=== PATIENT | female | born 1975 | race Caucasian/White ===

== ENCOUNTER 2016-12-06 19:57 | Emergency (ER) | payer SELFPAY ==
--- NOTE | 2016-12-06 21:55 | DIAGNOSTIC IMAGING REPORT ---
PROCEDURE: XR WRIST MIN 3 VIEWS - LEFT INDICATION: TRAUMA/INJURY TECHNIQUE: Four views. COMPARISON: Compare radiographs of the left wrist on 09/13/2010. FINDINGS: Osseous structures and joint spaces are normal. If an occult scaphoid fracture is suspected clinically, follow-up examination in 10-14 days may be of assistance. IMPRESSION: 1. Normal left wrist.
--- NOTE | 2016-12-06 22:03 | ED ORDER SUMMARY ---
..... Patient: AMINATA KEEN OrderSheet [facility] VisitID: [id number] [address] [place] [address] 41y, F Registration Date/Time: 12/06/2016 ORDER SHEET Weight: 101.6 kg (stated) Allergies: None GENERAL ORDERS: Wrist 3 or 4V Left Urgent (21:23 12/06/2016 HBivens A.R.N.P.) (Ack 21:25 RKaruga) (21:45 AMcQuoid ER Tech1) Lowell Wrap (22:03 12/06/2016 HBivens A.R.N.P.) (22:12 RMarsden R.N.) MEDICATION ORDERS: Hydrocodone-APAP PO 5/325 mg (NOW, HIGH ALERT MEDICATION) (21:23 12/06/2016 HBivens A.R.N.P.) (Ack 21:23 RMarsden R.N.) (21:25 RMarsden R.N.) IV FLUIDS: ORDER SHEET NOTES: [Electronically signed by Urszula LópezR.N.P. (22:31 12/06/2016)] [Electronically signed by Kimmie Arredondo R.N. (04:49 12/07/2016)] [Electronically locked/signed by Kimmie Arredondo R.N. (04:49 12/07/2016)]
--- NOTE | 2016-12-06 22:03 | ED NURSING NOTES ---
Clinical Report - Nurses [facility] [place] [address] 12/06/2016 19:57 [id number] Triage time 20:18. Acuity: LEVEL 4. Chief Complaint: INJURY TO LEFT HAND and INJURY TO LEFT WRIST. 20:32 12/06/16. Alert. SEPSIS SCREEN: Sepsis Screen. Negative (no infection suspected/documented). BELINDA COMA SCORE: [place] Coma Scale: 15- eyes open spontaneously (4); best verbal response- oriented x 4 (5); best motor response- obeys commands (6). --20:32 Kimmie Arredondo R.N. 20:18 12/06/16. BP: 101/61 taken on the right arm, while lying. HR: 69. RR: 15. O2 saturation: 96% on room air. Temp: 97.9 F. Pain level now: 03/02. --20:32 Kimmie Arredondo R.N. 20:36 12/06/16. --20:36 Kimmie Arredondo R.N. Weight: 101.6 kg stated. Height/Length: 63 inches Per Patient. BMI: 39.7. --20:24 Kimmie Arredondo R.N. Medications NexIUM Oral. --20:22 Kimmie Arredondo R.N. Allergies None. --20:22 Kimmie Arredondo R.N. History Arrived by private vehicle. Historian: patient. Accompanied by family. Primary physician (josé (seamar). Clinic sent patient). This occurred (two days ago). Mechanism of injury: fell. ( Patient states the outer part of her hand and wrist are tingling.). 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 PAST MEDICAL HX: Tetanus status: up-to-date. Immunizations: up-to-date. Denies current . SOCIAL HX: Light tobacco smoker (cigarette)- less than 1/2 a pack per day. Occasional alcohol use. No drug use. FALL RISK ASSESSMENT: Fall risk assessment completed. No fall risk identified. NUTRITIONAL RISK ASSESSMENT: The nutritional risk assessment revealed no deficiencies. FUNCTIONAL ASSESSMENT: Functional assessment: no impairments noted. LEARNING NEEDS ASSESSMENT: The learning needs assessment revealed no barriers. SKIN INTEGRITY ASSESSMENT: Skin integrity risk assessment completed. No skin integrity risk identified. --20:32 Kimmie Arredondo R.N. ( Patient states she tripped down the stairs and landed on her arm.). --20:36 Kimmie Arredondo R.N. PROBLEMS: Ovarian Cyst. Dehydration. Dizziness. Cystitis. Cervical Radiculopathy. Hemorrhoids. Constipation. Immunizations. Vomiting. Peptic Ulcer Disease. Abdominal Pain. Gastroesophageal Reflux Disease. Gastritis. Depression. LNMP - Last Normal Menstrual Period. --20:23 Kimmie Arredondo R.N. ADDITIONAL SURGERIES: Appendectomy. Cholecystectomy. . Hysterectomy. Oophorectomy. Previous Abdominal Surgery. --20:23 Kimmie Arredondo R.N. Interventions ID band on patient. To treatment room. --20:32 Kimmie Arredondo R.N. PHYSICAL ASSESSMENT 20:35 12/06/16. GENERAL / NEURO / PSYCH: Disoriented. Alert. Appears in no acute distress. EXTREMITIES: Capillary refill is less than 2 seconds in the extremities. Extremity pulses are within normal limits. Extremities exhibit normal ROM. Left forearm: tenderness, swelling and deformity. Left wrist: tenderness and swelling. Limited ROM secondary to pain (diminished flexion and extension). Thenar eminence, left hand: tenderness and swelling. Limited movement of the thumb secondary to pain (diminished flexion and extension). Left thumb: tenderness and swelling. Limited movement secondary to pain (diminished flexion and extension). Left index finger: tenderness and swelling. Limited movement secondary to pain (diminished flexion and extension). Left middle finger: tenderness and swelling. Limited movement secondary to pain (diminished flexion and extension). SKIN: Skin intact. Skin is warm and dry. --20:35 Kimmie Arredondo R.N. NURSING PROGRESS NOTES 21:21 12/06/16. Two patient identifiers checked. Call light placed in reach. Bed placed in lowest position. Brakes of bed on. ( Patient given blankets for comfort. Notified patient and family about reason for wait and plan of care.). --21:21 Kimmie Arredondo R.N. 21:25 12/06/2016 Hydrocodone-APAP (Hydrocodone-Acetaminophen) PO 5/325 mg Tablets 1 tab given. Allergies verified, confirmed 5 rights and sedative warning given to the patient and patient's family. --21:25 Kimmie Arredondo R.N. 21:37 Portable Xray in progress. --21:37 McQuoid, Ida, ER Tech1 ( xray in room.). --21:39 Kimmie Arredondo R.N. 21:52 12/06/16. BP: 101/50. HR: 60. RR: 16. O2 saturation: 97% on room air. Pain level now: 01/30. Additional comments: Patient declined ice bag. Ring removed from left hand by female family member. . --21:57 McQuoid, Ida, ER Tech1 22:01 12/06/16. BP: 101/50 taken on the right arm, while sitting. HR: 66. RR: 15. O2 saturation: 100%. Pain level now: 01/30. --22:02 Kimmie Arredondo R.N. 22:02 12/06/2016 Hydrocodone-APAP PO Response: no adverse reaction pain is improving. The patient feels better. 12/06/2016 22:01 BP: 101/50. HR: 66. RR: 15. O2 saturation: 100%. Pain level now: 01/30. --22:02 Kimmie Arredondo R.N. 22:02 12/06/16. Patient and family informed about reason for wait and about plan of care. --22:02 Kimmie Arredondo R.N. DISPOSITION / DISCHARGE 22:12/06/16. BP: 101/50 taken on the right arm, while sitting. HR: 66. RR: 15. O2 saturation: 100%. Pain level now: 01/30. --22:05 Kimmie Arredondo R.N. 22:13 12/06/16. No learning barriers present. Discharge instructions provided and reviewed with the patient and family. Reviewed warnings. Reviewed medication(s). Treatments reviewed. Activity restrictions reviewed. Patient and family verbalized understanding. Written instructions provided in Northern Irish. The patient was discharged home and accompanied by family. She left the Emergency Department ambulatory and via private vehicle. Family member driving. --22:13 Kimmie Arredondo R.N. <<STRICKEN ENTRY-- 04:47 12/06/16. Temp: deferred. --04:48 Kimmie Arredondo R.N. --END STRIKE>> Correction. --04:48 Kimmie Arredondo R.N. 22:01 12/06/16. Temp: deferred. --04:49 Kimmie Arredondo R.N. Locked/Released at 12/07/2016 4:49 by Kimmie Arredondo R.N.
--- NOTE | 2016-12-06 22:03 | ED ORDER SUMMARY ---
..... Patient: AMINATA KEEN OrderSheet [facility] VisitID: [id number] [address] [place] [address] 41y, F Registration Date/Time: 12/06/2016 ORDER SHEET Weight: 101.6 kg (stated) Allergies: None GENERAL ORDERS: Wrist 3 or 4V Left Urgent (21:23 12/06/2016 HBivens A.R.N.P.) (Ack 21:25 RKaruga) (21:45 AMcQuoid ER Tech1) Lowell Wrap (22:03 12/06/2016 HBivens A.R.N.P.) (22:12 RMarsden R.N.) MEDICATION ORDERS: Hydrocodone-APAP PO 5/325 mg (NOW, HIGH ALERT MEDICATION) (21:23 12/06/2016 HBivens A.R.N.P.) (Ack 21:23 RMarsden R.N.) (21:25 RMarsden R.N.) IV FLUIDS: ORDER SHEET NOTES: [Electronically signed by Urszula LópezR.N.P. (22:31 12/06/2016)] [Electronically signed by Kimmie Arredondo R.N. (04:49 12/07/2016)] [Electronically locked/signed by Kimmie Arredondo R.N. (04:49 12/07/2016)]
--- NOTE | 2016-12-06 22:03 | ED NURSING NOTES ---
Clinical Report - Nurses [facility] [place] [address] 12/06/2016 19:57 [id number] TRI[facility] Triage time 20:18. Acuity: LEVEL 4. Chief Complaint: INJURY TO LEFT HAND and INJURY TO LEFT WRIST. 20:32 12/06/16. Alert. SEPSIS SCREEN: Sepsis Screen. Negative (no infection suspected/documented). BELINDA COMA SCORE: [place] Coma Scale: 15- eyes open spontaneously (4); best verbal response- oriented x 4 (5); best motor response- obeys commands (6). --20:32 Kimmie Arredondo R.N. 20:18 12/06/16. BP: 101/61 taken on the right arm, while lying. HR: 69. RR: 15. O2 saturation: 96% on room air. Temp: 97.9 F. Pain level now: 03/02. --20:32 Kimmie Arredondo R.N. 20:36 12/06/16. --20:36 Kimmie Arredondo R.N. Weight: 101.6 kg stated. Height/Length: 63 inches Per Patient. BMI: 39.7. --20:24 Kimmie Arredondo R.N. Medications NexIUM Oral. --20:22 Kimmie Arredondo R.N. Allergies None. --20:22 Kimmie Arredondo R.N. History Arrived by private vehicle. Historian: patient. Accompanied by family. Primary physician (josé (seamar). Clinic sent patient). This occurred (two days ago). Mechanism of injury: fell. ( Patient states the outer part of her hand and wrist are tingling.). 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 PAST MEDICAL HX: Tetanus status: up-to-date. Immunizations: up-to-date. Denies current . SOCIAL HX: Light tobacco smoker (cigarette)- less than 1/2 a pack per day. Occasional alcohol use. No drug use. FALL RISK ASSESSMENT: Fall risk assessment completed. No fall risk identified. NUTRITIONAL RISK ASSESSMENT: The nutritional risk assessment revealed no deficiencies. FUNCTIONAL ASSESSMENT: Functional assessment: no impairments noted. LEARNING NEEDS ASSESSMENT: The learning needs assessment revealed no barriers. SKIN INTEGRITY ASSESSMENT: Skin integrity risk assessment completed. No skin integrity risk identified. --20:32 Kimmie Arredondo R.N. ( Patient states she tripped down the stairs and landed on her arm.). --20:36 Kimmie Arredondo R.N. PROBLEMS: Ovarian Cyst. Dehydration. Dizziness. Cystitis. Cervical Radiculopathy. Hemorrhoids. Constipation. Immunizations. Vomiting. Peptic Ulcer Disease. Abdominal Pain. Gastroesophageal Reflux Disease. Gastritis. Depression. LNMP - Last Normal Menstrual Period. --20:23 Kimmie Arredondo R.N. ADDITIONAL SURGERIES: Appendectomy. Cholecystectomy. . Hysterectomy. Oophorectomy. Previous Abdominal Surgery. --20:23 Kimmie Arredondo R.N. Interventions ID band on patient. To treatment room. --20:32 Kimmie Arredondo R.N. PHYSICAL ASSESSMENT 20:35 12/06/16. GENERAL / NEURO / PSYCH: Disoriented. Alert. Appears in no acute distress. EXTREMITIES: Capillary refill is less than 2 seconds in the extremities. Extremity pulses are within normal limits. Extremities exhibit normal ROM. Left forearm: tenderness, swelling and deformity. Left wrist: tenderness and swelling. Limited ROM secondary to pain (diminished flexion and extension). Thenar eminence, left hand: tenderness and swelling. Limited movement of the thumb secondary to pain (diminished flexion and extension). Left thumb: tenderness and swelling. Limited movement secondary to pain (diminished flexion and extension). Left index finger: tenderness and swelling. Limited movement secondary to pain (diminished flexion and extension). Left middle finger: tenderness and swelling. Limited movement secondary to pain (diminished flexion and extension). SKIN: Skin intact. Skin is warm and dry. --20:35 Kimmie Arredondo R.N. NURSING PROGRESS NOTES 21:21 12/06/16. Two patient identifiers checked. Call light placed in reach. Bed placed in lowest position. Brakes of bed on. ( Patient given blankets for comfort. Notified patient and family about reason for wait and plan of care.). --21:21 Kimmie Arredondo R.N. 21:25 12/06/2016 Hydrocodone-APAP (Hydrocodone-Acetaminophen) PO 5/325 mg Tablets 1 tab given. Allergies verified, confirmed 5 rights and sedative warning given to the patient and patient's family. --21:25 Kimmie Arredondo R.N. 21:37 Portable Xray in progress. --21:37 McQuoid, Ida, ER Tech1 ( xray in room.). --21:39 Kimmie Arredondo R.N. 21:52 12/06/16. BP: 101/50. HR: 60. RR: 16. O2 saturation: 97% on room air. Pain level now: 01/30. Additional comments: Patient declined ice bag. Ring removed from left hand by female family member. . --21:57 McQuoid, Ida, ER Tech1 22:01 12/06/16. BP: 101/50 taken on the right arm, while sitting. HR: 66. RR: 15. O2 saturation: 100%. Pain level now: 01/30. --22:02 Kimmie Arredondo R.N. 22:02 12/06/2016 Hydrocodone-APAP PO Response: no adverse reaction pain is improving. The patient feels better. 12/06/2016 22:01 BP: 101/50. HR: 66. RR: 15. O2 saturation: 100%. Pain level now: 01/30. --22:02 Kimmie Arredondo R.N. 22:02 12/06/16. Patient and family informed about reason for wait and about plan of care. --22:02 Kimmie Arredondo R.N. DISPOSITION / DISCHARGE 22:12/06/16. BP: 101/50 taken on the right arm, while sitting. HR: 66. RR: 15. O2 saturation: 100%. Pain level now: 01/30. --22:05 Kimmie Arredondo R.N. 22:13 12/06/16. No learning barriers present. Discharge instructions provided and reviewed with the patient and family. Reviewed warnings. Reviewed medication(s). Treatments reviewed. Activity restrictions reviewed. Patient and family verbalized understanding. Written instructions provided in Salvadorean. The patient was discharged home and accompanied by family. She left the Emergency Department ambulatory and via private vehicle. Family member driving. --22:13 Kimmie Arredondo R.N. <<STRICKEN ENTRY-- 04:47 12/06/16. Temp: deferred. --04:48 Kimmie Arredondo R.N. --END STRIKE>> Correction. --04:48 Kimmie Arredondo R.N. 22:01 12/06/16. Temp: deferred. --04:49 Kimmie Arredondo R.N. Locked/Released at 12/07/2016 4:49 by Kimmie Arredondo R.N.
--- NOTE | 2016-12-06 22:03 | ED CLINICAL REPORT ---
Clinical Report - Physicians/Mid Levels [facility] [address] [place] [address] 12/06/2016 19:57 Patient: AMINATA KEEN Time Seen: 20:27; initial patient contact, initial documentation, patient care assumed. Arrived- By private vehicle. Historian- patient and daughter. HISTORY OF PRESENT ILLNESS Chief Complaint: Injury to the left wrist. The injury happened about 2 days ago. Fell while walking and landed on a hard surface; tripped (tripped on stairs). Occurred at home. Patient is experiencing moderate pain. Patient denies injury to the head or neck. No other injury. ( sent from clinic for xray). REVIEW OF SYSTEMS The patient has had swelling. No tingling, numbness, weakness, foreign body or skin laceration. All systems otherwise negative, except as recorded above. PAST HISTORY See nurses notes. PROBLEMS: Ovarian Cyst. Dehydration. Dizziness. Cystitis. Cervical Radiculopathy. Hemorrhoids. Constipation. Immunizations. Vomiting. Peptic Ulcer Disease. Abdominal Pain. Gastroesophageal Reflux Disease. Gastritis. Depression. LNMP - Last Normal Menstrual Period. --20:23 Kimmie Arredondo, RDuN. ADDITIONAL SURGERIES: Appendectomy. Cholecystectomy. . Hysterectomy. Oophorectomy. Previous Abdominal Surgery. --20:23 Kimmie Arredondo RDuN. SOCIAL HISTORY Light tobacco smoker. Occasional alcohol use. No drug use. No recent travel. Is a local resident. FAMILY HISTORY No significant family medical history. ADDITIONAL NOTES The nursing notes have been reviewed with agreement regarding the chief complaint, HPI, ROS, PMH and patient medications and allergies. PHYSICAL EXAM Vital Signs: 12/06/2016 20:18 BP: 101/61. HR: 69. RR: 15. O2 saturation: 96%. Temp: 97.9 F. Pain level now: 9/10. Have been reviewed as normal and appear to be correct. Appearance: Alert. Oriented X3. No acute distress. Head: Head atraumatic. Eyes: Pupils equal, round and reactive to light. Eyes normal inspection. Respiratory: No respiratory distress. Skin: Skin warm and dry. Skin intact. Extremities: Wrist injury present. Left wrist: moderate tenderness and mild swelling. Limited ROM secondary to pain (diminished flexion and extension, ulnar deviation and radial deviation). Neurovascular intact distally. No erythema, laceration, abrasion, ecchymosis or puncture wound. No foreign body or deformity. No localization or joint effusion. No hand injury. Hand and wrist exam otherwise negative. Extremities otherwise negative. Neuro, Vascular and Tendons: Vascular status intact. Sensation intact. Motor intact. Tendon function intact. Neuro: Oriented X 3. No motor deficit. No sensory deficit. Note: isolated injury to wrist. LABS, X-RAYS, AND EKG X-Rays: Left wrist negative. Lt Wrist X-ray: (IMPRESSION: 1. Normal left wrist. Electronically Final signed by:Chapo Upton MD 12/06/2016 9:50:20 PM). The X-rays were interpreted by the radiologist and contemporaneously by me. PROGRESS AND PROCEDURES Patient and family counseled in person regarding the patient's stable condition, test results and diagnosis. 22:02. Differential Diagnosis: Other possible considerations: fall, wrist fx, sprain. Above considerations are based on history, physical exam, reassessment and X-Ray data. Differential diagnosis was discussed with patient. Disposition: Discharged home in good and improved condition (22:03). Condition: good and stable. CLINICAL IMPRESSION Sprain of the left radiocarpal joint. Fall on same level by tripping. INSTRUCTIONS Wear elastic wrap (Lowell wrap) as directed for one weeks until better. Warnings: GENERAL WARNINGS: Return or contact your physician immediately if your condition worsens or changes unexpectedly, if not improving as expected, or if other problems arise. Specifically return if problem worsens. Prescription Medications: Ultram 50 mg tablets: take 1-2 orally every 6 hours as needed for pain. Dispense twenty (20). No refills. Substitution is permissible. Follow-up: Follow up with your doctor in about one week as needed. Call for an appointment. Summary of care provided to patient. Understanding of the discharge instructions verbalized by patient. (Electronically signed by Urszula López A.R.NJhoana 12/06/2016 22:31)
--- NOTE | 2016-12-07 04:49 | ED MED RECONCILIATION SUMMARY ---
Patient: AMINATA KEEN Medication Reconciliation Report [facility] VisitID: [id number] [address] [place] [address] 41y, F Registration Date/Time: 12/06/2016 Weight: 101.6 kg Height/Length: 63 in. BMI: 39.7 ALLERGIES: None The patient's Home Medications are listed below: THE FOLLOWING MEDICATIONS NEED TO BE RECONCILED: NexIUM Oral The source(s) of the original Home Medication information: Not obtained. The following Medications were given to the patient in the Emergency Department: Hydrocodone-APAP [PO] PO 1 tab, administered: 12/06/2016 9:25:00 PM The following Medications were prescribed to the patient: Ultram 50 mg tablets: take 1-2 orally every 6 hours as needed for pain. Dispense twenty (20). No refills. Substitution is permissible. -- Urszula López A.R.N.P.
--- NOTE | 2016-12-07 04:49 | ED MAR SUMMARY ---
..... Medication Administration Record [facility] [address] [place] [address] Patient: AMINATA KEEN Visit ID: [id number] 41y, F Weight: 101.6 kg Height/Length: 63 in BMI: 39.7 ALLERGIES: None Given 21:25 12/06/2016 Kimmie Arredondo R.N. Medication Administered: HYDROCODONE-APAP [PO] (HYDROCODONE-ACETAMINOPHEN), Dose: 1 tab 5/325 mg Tablets PO. Medication Ordered: Hydrocodone-APAP PO 5/325 mg (NOW, HIGH ALERT MEDICATION).
--- NOTE | 2016-12-07 04:49 | ED DISCHARGE INSTRUCTIONS ---
Patient: AMINATA KEEN General Instructions [facility] VisitID: [id number] [place] [address] 41y, F Registration Date/Time: 12/06/2016 Sprain of the left radiocarpal joint. Fall on same level by tripping. INSTRUCTIONS Wear elastic wrap (Lowell wrap) as directed for one weeks until better. Warnings: GENERAL WARNINGS: Return or contact your physician immediately if your condition worsens or changes unexpectedly, if not improving as expected, or if other problems arise. Specifically return if problem worsens. Prescription Medications: Ultram 50 mg tablets: take 1-2 orally every 6 hours as needed for pain. Dispense twenty (20). No refills. Substitution is permissible. Follow-up: Follow up with your doctor in about one week as needed. Call for an appointment. Summary of care provided to patient. Understanding of the discharge instructions verbalized by patient. ADDITIONAL INFORMATION Mechanical Fall You have had a fall today. It appears that the cause is mechanical. That means that you slipped, tripped or lost your balance. If your fall had been due to fainting or a seizure, further tests would be required. Home Care: Rest today and resume your normal activities when you are feeling back to normal. If you were injured during the fall, follow the advice from your doctor regarding care of your injury. You may use acetaminophen (Tylenol) or ibuprofen (Motrin, Advil) to control pain, unless another pain medicine was prescribed. [NOTE: If you have chronic liver or kidney disease or ever had a stomach ulcer or GI bleeding, talk with your doctor before using these medicines.] Fall Prevention: Was there anything that caused your fall that can be fixed, removed, or replaced? Make your home safe by keeping walkways clear of objects you may trip over. Use non-slip pads under rugs. Do not walk in poorly lit areas. Do not stand on chairs or wobbly ladders. Use caution when reaching overhead or looking upward. This position can cause a loss of balance. Be sure your shoes fit properly, have non-slip bottoms and are in good condition. Be cautious when going up and down curbs, and walking on uneven sidewalks. If your balance is poor, consider using a cane or walker. Stay as active as you can. Balance, flexibility, strength, and endurance all come from exercise. They all play a role in preventing falls. Follow Up with your doctor or as advised by our staff. Get Prompt Medical Attention if any of the following occur: Repeated mechanical falls, or unexplained falls Dizziness, fainting or seizure Severe headache Chest pain or shortness of breath Palpitations (very rapid or very slow or irregular heartbeat) Blood in vomit, stools (black or red color) Weakness of an arm or leg or one side of the face Difficulty with speech or vision Sprain, Wrist A sprain is an injury to the ligaments or capsule that holds a joint together. There are no broken bones. Most sprains take about three to six weeks to heal. If the ligament is completely torn (severe sprain), it can take months to recover. Most wrist sprains are treated with a splint, wrist brace or elastic wrap for support. Severe sprains may require surgery. Home care The following guidelines will help you care for your injury at home: 1) Keep your arm elevated to reduce pain and swelling. This is very important during the first 48 hours. 2) Apply an ice pack (ice cubes in a plastic bag, wrapped in a towel) over the injured area for 20 minutes every 12 hours the first day. Continue with ice packs 34 times a day for the next two days, then as needed for the relief of pain and swelling. 3) You may use acetaminophen or ibuprofen to control pain, unless another pain medicine was prescribed.If you have chronic liver or kidney disease or ever had a stomach ulcer or GI bleeding, talk with your doctor before using these medicines. 4) If you were given a splint or brace, wear it for the time advised by your doctor. Follow-up care Follow up with your doctor as advised. Any X-rays you had today dont show any broken bones, breaks, or fractures. Sometimes fractures dont show up on the first X-ray. Bruises and sprains can sometimes hurt as much as a fracture. These injuries can take time to heal completely. If your symptoms dont improve or they get worse, talk with your doctor. You may need a repeat X-ray. When to seek medical care Get prompt medical attention if any of the following occur: Pain or swelling increases Fingers or hand becomes cold, blue, numb, or tingly Lowell Wrap An "Lowell Bandage" refers to any elastic bandage wrap (2-6" wide). This is used to apply support and compression to an arm or leg. It will help prevent or reduce swelling also. When applying the bandage, it should not be stretched too tightly. A tight Lowell Wrap will reduce circulation and cause tingling or numbness in the hand or foot. It may increase the pain under the bandage. If you get these symptoms, remove the wrap and rest the limb. Symptoms should go away within 1-2 hours. Once symptoms go away, reapply the bandage with less stretch. If symptoms do not go away after 1-2 hours with the bandage off, call your doctor or return to this facility promptly. Tramadol Hydrochloride Oral tablet What is this medicine? TRAMADOL (TRA ma dole) is a pain reliever. It is used to treat moderate to severe pain in adults. How should I use this medicine? Take this medicine by mouth with a full glass of water. Follow the directions on the prescription label. If the medicine upsets your stomach, take it with food or milk. Do not take more medicine than you are told to take. Talk to your production utility worker regarding the use of this medicine in children. Special care may be needed. What side effects may I notice from receiving this medicine? Side effects that you should report to your doctor or health long term care social worker as soon as possible: allergic reactions like skin rash, itching or hives, swelling of the face, lips, or tongue breathing difficulties, wheezing confusion itching light headedness or fainting spells redness, blistering, peeling or loosening of the skin, including inside the mouth seizures Side effects that usually do not require medical attention (report to your doctor or health long term care social worker if they continue or are bothersome): constipation dizziness drowsiness headache nausea, vomiting What may interact with this medicine? Do not take this medicine with any of the following medications: MAOIs like Carbex, Eldepryl, Marplan, Nardil, and Parnate This medicine may also interact with the following medications: alcohol or medicines that contain alcohol antihistamines benzodiazepines bupropion carbamazepine or oxcarbazepine clozapine cyclobenzaprine digoxin furazolidone linezolid medicines for depression, anxiety, or psychotic disturbances medicines for migraine headache like almotriptan, eletriptan, frovatriptan, naratriptan, rizatriptan, sumatriptan, zolmitriptan medicines for pain like pentazocine, buprenorphine, butorphanol, meperidine, nalbuphine, and propoxyphene medicines for sleep muscle relaxants naltrexone phenobarbital phenothiazines like perphenazine, thioridazine, chlorpromazine, mesoridazine, fluphenazine, prochlorperazine, promazine, and trifluoperazine procarbazine warfarin What if I miss a dose? If you miss a dose, take it as soon as you can. If it is almost time for your next dose, take only that dose. Do not take double or extra doses. Where should I keep my medicine? Keep out of the reach of children. Store at room temperature between 15 and 30 degrees C (59 and 86 degrees F). Keep container tightly closed. Throw away any unused medicine after the expiration date. What should I tell my health care provider before I take this medicine? They need to know if you have any of these conditions: brain tumor depression drug abuse or addiction head injury if you frequently drink alcohol containing drinks kidney disease or trouble passing urine liver disease lung disease, asthma, or breathing problems seizures or epilepsy suicidal thoughts, plans, or attempt; a previous suicide attempt by you or a family member an unusual or allergic reaction to tramadol, codeine, other medicines, foods, dyes, or preservatives or trying to get breast-feeding What should I watch for while using this medicine? Tell your doctor or health long term care social worker if your pain does not go away, if it gets worse, or if you have new or a different type of pain. You may develop tolerance to the medicine. Tolerance means that you will need a higher dose of the medicine for pain relief. Tolerance is normal and is expected if you take this medicine for a long time. Do not suddenly stop taking your medicine because you may develop a severe reaction. Your body becomes used to the medicine. This does NOT mean you are addicted. Addiction is a behavior related to getting and using a drug for a non-medical reason. If you have pain, you have a medical reason to take pain medicine. Your doctor will tell you how much medicine to take. If your doctor wants you to stop the medicine, the dose will be slowly lowered over time to avoid any side effects. You may get drowsy or dizzy. Do not drive, use machinery, or do anything that needs mental alertness until you know how this medicine affects you. Do not stand or sit up quickly, especially if you are an older patient. This reduces the risk of dizzy or fainting spells. Alcohol can increase or decrease the effects of this medicine. Avoid alcoholic drinks. You may have constipation. Try to have a bowel movement at least every 2 to 3 days. If you do not have a bowel movement for 3 days, call your doctor or health long term care social worker. Your mouth may get dry. Chewing sugarless gum or sucking hard candy, and drinking plenty of water may help. Contact your doctor if the problem does not go away or is severe. You have been given the following additional information: Fall, Mechanical Wrist Sprain Lowell Wrap Tramadol Hydrochloride Oral tablet (Electronically signed by Urszula López A.R.N.P. 12/06/2016 22:31)
--- NOTE | 2016-12-07 04:49 | ED MED RECONCILIATION SUMMARY ---
Patient: AMINATA KEEN Medication Reconciliation Report Merged With [facility] VisitID: [id number] [address] [place] [address] 41y, F Registration Date/Time: 12/06/2016 Weight: 101.6 kg Height/Length: 63 in. BMI: 39.7 ALLERGIES: None The patient's Home Medications are listed below: THE FOLLOWING MEDICATIONS NEED TO BE RECONCILED: NexIUM Oral The source(s) of the original Home Medication information: Not obtained. The following Medications were given to the patient in the Emergency Department: Hydrocodone-APAP [PO] PO 1 tab, administered: 12/06/2016 9:25:00 PM The following Medications were prescribed to the patient: Ultram 50 mg tablets: take 1-2 orally every 6 hours as needed for pain. Dispense twenty (20). No refills. Substitution is permissible. -- Urszula López A.R.N.P.
--- NOTE | 2016-12-07 04:49 | ED MAR SUMMARY ---
..... Medication Administration Record [facility] [address] [place] [address] Patient: AMINATA KEEN Visit ID: [id number] 41y, F Weight: 101.6 kg Height/Length: 63 in BMI: 39.7 ALLERGIES: None Given 21:25 12/06/2016 Kimmie Arredondo R.N. Medication Administered: HYDROCODONE-APAP [PO] (HYDROCODONE-ACETAMINOPHEN), Dose: 1 tab 5/325 mg Tablets PO. Medication Ordered: Hydrocodone-APAP PO 5/325 mg (NOW, HIGH ALERT MEDICATION).
== END 2016-12-06 22:14 | disposition home or self-care (01) ==
LOC: ED SRH 19:57
DX: S63.522A Sprain of radiocarpal joint of left wrist, initial encounter (principal); W01.0XXA Fall on same level from slipping, tripping and stumbling without subsequent striking against object, initial encounter; Y93.01 Activity, walking, marching and hiking; Y99.9 Unspecified external cause status; Y92.009 Unspecified place in unspecified non-institutional (private) residence as the place of occurrence of the external cause; Z72.0 Tobacco use